=== PATIENT | female | born 1970 | race Caucasian/White ===

== ENCOUNTER 2023-10-17 17:30 | Inpatient (IN) | payer BC, OTHER ==
[2023-10-17 18:18] LABS: #Monocytes 0.3 thou/uL (0.11-0.59); #Neutrophils 8.6 thou/uL (1.40-6.50); %Basophils 0.2 % (0.0-1.0); %Lymphocytes 19.1 % (21.0-51.0); %Monocytes 3.1 % (0.0-10.0); %Neutrophils 77.2 % (42.0-75.0); Hematocrit 42.6 % (36.0-47.0); Hemoglobin 14.2 g/dL (12.0-16.0); Mean Corpuscular HGB CONC 33.3 g/dL (32.0-36.0); Mean Corpuscular Hemoglobin 30.9 pg (27.0-31.0); Mean Corpuscular Volume 92.6 fl (78.0-98.0); Mean Platelet Volume 9.2 fL (7.4-10.4); Platelet Count 277 10x3/uL (130-400); RBC Distribution Width 12.3 % (11.5-14.5); White Blood Cell (WBC) Count 11.1 10x3/uL (4.8-10.8)
[2023-10-17 18:42] LABS: ALT (SGPT) 14 U/L (8-55); AST (SGOT) 13 U/L (5-34); Albumin 4.4 g/dL (3.5-5.0); Alkaline Phosphatase 65 U/L (40-110); Anion Gap 10 mmol/L (10-20); BUN (Urea Nitrogen) 14 mg/dL (9.8-20.1); Bilirubin, Total 0.2 mg/dL (0.2-1.2); Calc. Creatinine Clearance 0 mL/min (70-130); Calcium 9.6 mg/dL (7.8-10.44); Carbon Dioxide 33 mmol/L (22-29); Chloride 103 mmol/L (98-107); Estimated GFR 96; Globulin 3.6 g/dL (2.4-3.5); Glucose 118 mg/dL (70-105); Potassium 4.2 mmol/L (3.5-5.1); Sodium 142 mmol/L (136-145)
[2023-10-17 18:54] LABS: Troponin I Less than 0.010 ng/mL (< 0.028)
[2023-10-17] MEDS ORDERED: Senokot S 8.6-50 MG TAB PO PRN (19:15)
[2023-10-17] MEDS ORDERED: Calcium Carbonate 500 MG ChewTAB PO PRN (19:15)
[2023-10-17] MEDS ORDERED: Ondansetron ODT 4 MG TAB PO PRN (19:15)
[2023-10-17] MEDS ORDERED: predniSONE 20 MG TAB ONE (19:39)
[2023-10-17] MEDS ORDERED: Ipratropium/Albuterol 3 ML NEB ONE (19:39)
[2023-10-17] MEDS ORDERED: Magnesium 2 GM/50 ML BAG (IN WATER) ONE (19:39)
[2023-10-17] MEDS ORDERED: hydrALAZINE 25 MG TAB ONE (19:39)
[2023-10-17] MEDS ORDERED: Sodium Chloride 0.9% 100 ML ONE (19:40)
[2023-10-17] MEDS ORDERED: cefTRIAXone (ROCEPHIN) 1 GM VIAL ONE (19:40)
[2023-10-17] MEDS ORDERED: Azithromycin 250 MG TAB ONE (19:44)
[2023-10-17 20:15] LABS: Actual Bicarbonate (HCO3v) 26.6 mEq/L (22-28); Analyzer IN Cardio ER; Base Excess 1.2 mEq/L (-2.0 to +3.0); Calcium, Ionized (venous) 1.16 mmol/L (1.16-1.32); Chloride (VBG) 103 mmol/L (98-106); Hematocrit-VBG 42 % (36.0-47.0); Hemoglobin (Hb) 14.4 g/dL (11.7-16.0); Potassium (VBG) 4.23 mmol/L (3.70-5.30); Sodium 141 mmol/L (133-146); pH (venous) 7.392 (7.32-7.43)
[2023-10-17 20:50] LABS: Troponin I Less than 0.010 ng/mL (< 0.028)
[2023-10-17] MEDS: methylPREDNISolone Sod Succ 40 MG VIAL IVP SCH (22:16)
[2023-10-17] MEDS: Doxycycline 100 MG CAP PO SCH (22:16)
[2023-10-17] MEDS: Amlodipine 5 MG TAB PO SCH (22:16)
[2023-10-17] MEDS: Famotidine 20 MG TAB PO SCH (22:16)
[2023-10-17] MEDS: Guaifenesin DM 100-10/5 ML UDCUP PO PRN (22:24)
[2023-10-17 22:30] VITALS: BMI 29.0
[2023-10-17] MEDS: Ipratropium/Albuterol 3 ML NEB NEB SCH (22:33)
[2023-10-17] MEDS ORDERED: Ketorolac Tromethamine 30 MG (1 mL) VIAL IVP SCH (23:30)
[2023-10-18] MEDS: hydrALAZINE 25 MG TAB PO PRN ×2 (00:19→12:01)
[2023-10-18] MEDS ORDERED: Labetalol HCl 100 MG/20 ML VIAL SLOW IVP SCH (02:00)
[2023-10-18] MEDS ORDERED: Labetalol HCl 100 MG/20 ML VIAL ONE (02:17)
[2023-10-18 03:32] LABS: Troponin I Less than 0.010 ng/mL (< 0.028)
[2023-10-18 05:47] LABS: #Monocytes 0.2 thou/uL (0.11-0.59); #Neutrophils 9.3 thou/uL (1.40-6.50); %Basophils 0.1 % (0.0-1.0); %Lymphocytes 18.7 % (21.0-51.0); %Monocytes 1.3 % (0.0-10.0); %Neutrophils 79.2 % (42.0-75.0); Hematocrit 40.2 % (36.0-47.0); Hemoglobin 13.2 g/dL (12.0-16.0); Mean Corpuscular HGB CONC 32.8 g/dL (32.0-36.0); Mean Corpuscular Volume 94.4 fl (78.0-98.0); Mean Platelet Volume 9.1 fL (7.4-10.4); Platelet Count 267 10x3/uL (130-400); RBC Distribution Width 12.5 % (11.5-14.5); Red Blood Cell (RBC) Count 4.26 mill/uL (4.20-5.40); White Blood Cell (WBC) Count 11.8 10x3/uL (4.8-10.8)
[2023-10-18 06:08] LABS: Anion Gap 12 mmol/L (10-20); BUN (Urea Nitrogen) 13 mg/dL (9.8-20.1); Calc. Creatinine Clearance 105 mL/min (70-130); Calcium 9.2 mg/dL (7.8-10.44); Carbon Dioxide 28 mmol/L (22-29); Chloride 104 mmol/L (98-107); Estimated GFR 101; Glucose 159 mg/dL (70-105); Potassium 4.3 mmol/L (3.5-5.1); Sodium 140 mmol/L (136-145)
[2023-10-18] MEDS: Ipratropium/Albuterol 3 ML NEB NEB SCH ×4 (07:38→22:05)
[2023-10-18] MEDS: Mometasone 200 MCG/Formoterol 5 MCG 120 PUFF INHALER INH SCH ×2 (07:38→18:31)
[2023-10-18] MEDS ORDERED: cefTRIAXone\\ROCEPHIN 1 GM in Sodium Chloride 0.9% 100 ML IVPB SCH (09:00)
[2023-10-18] MEDS ORDERED: Ipratropium/Albuterol 3 ML NEB EZPAP PRN ×2 (09:36→17:22)
[2023-10-18] MEDS: Doxycycline 100 MG CAP PO SCH (09:39)
[2023-10-18] MEDS: Famotidine 20 MG TAB PO SCH ×2 (09:39→20:32)
[2023-10-18] MEDS: Enoxaparin 40 MG (0.4 mL) SYRINGE SC SCH (09:39)
[2023-10-18] MEDS: methylPREDNISolone Sod Succ 40 MG VIAL IVP SCH ×4 (09:49→22:08)
[2023-10-18] MEDS ORDERED: Triamterene/Hydrochlorothiazide 37.5 mg/25 mg Tablet PO SCH (10:00)
[2023-10-18] MEDS: Lorazepam 1 MG TAB PO PRN ×2 (10:45→14:57)
[2023-10-18] MEDS: Guaifenesin DM 100-10/5 ML UDCUP PO PRN (10:53)
[2023-10-18] MEDS ORDERED: hydrALAZINE 20 MG/ML VIAL SLOW IVP PRN (12:43)
[2023-10-18] MEDS ORDERED: Benzonatate 100 MG CAP PO PRN (12:43)
[2023-10-18] MEDS ORDERED: Sodium Chloride 0.65% Nasal 44 ML BOT EA NARE PRN (12:43)
[2023-10-18] MEDS ORDERED: Artificial Tear Sol 15 ML BOT EA EYE PRN (12:43)
[2023-10-18] MEDS ORDERED: Moisturizing Cream (Eucerin) 113 GM JAR TOP PRN (12:43)
[2023-10-18] MEDS ORDERED: Loratadine 10 MG TAB PO PRN (12:43)
[2023-10-18] MEDS ORDERED: Lisinopril 20 MG TAB PO SCH (13:00)
[2023-10-18] MEDS ORDERED: Lurasidone 20 MG TABLET PO SCH (13:15)
[2023-10-18 13:38] LABS: Actual Bicarbonate (HCO3a) 30.6 mEq/L (22-28); CO2 Tension 48.5 mmHg (35.0-45.0); O2 Tension (PaO2), arterial 50.8 mmHg (80.0-100.0); pH, Arterial 7.418 (7.35-7.45)
[2023-10-18 13:39] LABS: Analyzer IN Cardio OR; Base Excess (BEa) 5.1 mEq/L (-2.0 to +3.0); Calcium, Ionized (arterial) 1.19 mmol/L (1.12-1.30); Carboxyhemoglobin (COHb) 0.7 gm% (0.0-3.0); Hematocrit-ABG 42 % (36.0-47.0); Hemoglobin (Hb) 14.3 g/dL (12.0-16.0); Potassium - ABG Lab 4.21 mmol/L (3.70-5.30); Puncture Site LRA
[2023-10-18] MEDS ORDERED: Lorazepam 2 MG/ML VIAL SLOW IVP PRN (17:20)
[2023-10-18] MEDS ORDERED: Lorazepam 2 MG/ML VIAL SLOW IVP SCH (17:30)
[2023-10-18] MEDS ORDERED: guaiFENesin ER 600 MG TAB PO SCH (17:36)
[2023-10-18] MEDS: guaiFENesin ER 600 MG TAB PO SCH (17:47)
[2023-10-18] MEDS: Acetaminophen 325 MG TAB PO PRN (17:48)
[2023-10-18] MEDS: Azithromycin 500 MG in Sodium Chloride 0.9% 250 ML 250 ML IVPB SCH (20:31)
[2023-10-18] MEDS: Amlodipine 5 MG TAB PO SCH (20:32)
[2023-10-18] MEDS: QUEtiapine 100 MG TAB PO SCH (20:32)
[2023-10-18] MEDS ORDERED: Albuterol 2.5 MG (3 mL) NEB NEB PRN (20:49)
[2023-10-18] MEDS ORDERED: Dexmedetomidine 400 MCG, Admixture Fee 1 EACH in Sodium Chloride 0.9% 96 ML IVPB SCH (21:00)
[2023-10-18] MEDS ORDERED: Dexmedetomidine In 0.9 % NaCl 100 ML IVPB SCH (21:00)
[2023-10-19] MEDS: Ipratropium/Albuterol 3 ML NEB NEB SCH ×6 (02:21→21:30)
[2023-10-19] MEDS: methylPREDNISolone Sod Succ 40 MG VIAL IVP SCH ×4 (04:52→21:43)
[2023-10-19] MEDS: guaiFENesin ER 600 MG TAB PO SCH ×2 (05:55→17:45)
[2023-10-19] MEDS: Mometasone 200 MCG/Formoterol 5 MCG 120 PUFF INHALER INH SCH ×2 (07:34→19:33)
[2023-10-19 07:41] LABS: #Monocytes 0.2 thou/uL (0.11-0.59); %Basophils 0.1 % (0.0-1.0); %Lymphocytes 18.7 % (21.0-51.0); %Monocytes 1.4 % (0.0-10.0); %Neutrophils 79.2 % (42.0-75.0); Hematocrit 46.8 % (36.0-47.0); Hemoglobin 14.9 g/dL (12.0-16.0); Mean Corpuscular HGB CONC 31.8 g/dL (32.0-36.0); Mean Corpuscular Hemoglobin 31.1 pg (27.0-31.0); Mean Corpuscular Volume 97.7 fl (78.0-98.0); Platelet Count 271 10x3/uL (130-400); RBC Distribution Width 12.4 % (11.5-14.5); Red Blood Cell (RBC) Count 4.79 mill/uL (4.20-5.40); White Blood Cell (WBC) Count 13.9 10x3/uL (4.8-10.8)
[2023-10-19 08:11] LABS: Anion Gap 20 mmol/L (10-20); BUN (Urea Nitrogen) 21 mg/dL (9.8-20.1); Calc. Creatinine Clearance 92 mL/min (70-130); Calcium 9.6 mg/dL (7.8-10.44); Carbon Dioxide 21 mmol/L (22-29); Chloride 101 mmol/L (98-107); Estimated GFR 87; Glucose 112 mg/dL (70-105); Potassium 4.7 mmol/L (3.5-5.1); Sodium 137 mmol/L (136-145)
[2023-10-19] MEDS: Enoxaparin 40 MG (0.4 mL) SYRINGE SC SCH (08:18)
[2023-10-19] MEDS: Lurasidone 20 MG TABLET PO SCH (08:19)
[2023-10-19] MEDS: Famotidine 20 MG TAB PO SCH ×2 (08:19→19:37)
[2023-10-19] MEDS: Lisinopril 20 MG TAB PO SCH (08:19)
[2023-10-19] MEDS: Triamterene/Hydrochlorothiazide 37.5 mg/25 mg Tablet PO SCH (08:20)
[2023-10-19] MEDS: Nicotine 14 MG PATCH TD PRN (08:20)
[2023-10-19] MEDS: Morphine 2 MG/ML VIAL SLOW IVP PRN ×2 (08:32→19:33)
[2023-10-19] MEDS: guaiFENesin/Codeine 200 mg/20 mg 10 ml Cup PO SCH ×3 (10:02→23:32)
[2023-10-19] MEDS: Benzonatate 100 MG CAP PO SCH ×3 (10:02→19:37)
[2023-10-19 18:33] VITALS: BP 180/110
[2023-10-19] MEDS: Azithromycin 500 MG in Sodium Chloride 0.9% 250 ML 250 ML IVPB SCH (19:36)
[2023-10-19] MEDS: Acetaminophen 325 MG TAB PO PRN (19:36)
[2023-10-19] MEDS: Amlodipine 5 MG TAB PO SCH (19:37)
[2023-10-19] MEDS: QUEtiapine 100 MG TAB PO SCH (19:37)
[2023-10-19] MEDS ORDERED: ALPRAZolam 0.25 MG TAB PO SCH (22:00)
[2023-10-20] MEDS: Ipratropium/Albuterol 3 ML NEB NEB SCH ×6 (02:28→22:41)
[2023-10-20] MEDS: methylPREDNISolone Sod Succ 40 MG VIAL IVP SCH ×5 (03:28→22:11)
[2023-10-20] MEDS: guaiFENesin ER 600 MG TAB PO SCH ×2 (05:31→17:26)
[2023-10-20] MEDS: guaiFENesin/Codeine 200 mg/20 mg 10 ml Cup PO SCH ×4 (05:31→23:38)
[2023-10-20] MEDS: Mometasone 200 MCG/Formoterol 5 MCG 120 PUFF INHALER INH SCH ×2 (07:04→19:09)
[2023-10-20] MEDS: Enoxaparin 40 MG (0.4 mL) SYRINGE SC SCH (09:42)
[2023-10-20] MEDS: Benzonatate 100 MG CAP PO SCH ×3 (09:42→20:37)
[2023-10-20] MEDS: Triamterene/Hydrochlorothiazide 37.5 mg/25 mg Tablet PO SCH (09:43)
[2023-10-20] MEDS: Famotidine 20 MG TAB PO SCH ×2 (09:43→20:38)
[2023-10-20] MEDS: Lurasidone 20 MG TABLET PO SCH (09:43)
[2023-10-20] MEDS: Lisinopril 20 MG TAB PO SCH (09:44)
[2023-10-20] MEDS: Morphine 2 MG/ML VIAL SLOW IVP PRN ×3 (12:30→22:11)
[2023-10-20] MEDS: QUEtiapine 100 MG TAB PO SCH (20:37)
[2023-10-20] MEDS: Azithromycin 500 MG in Sodium Chloride 0.9% 250 ML 250 ML IVPB SCH (20:37)
[2023-10-20] MEDS: Amlodipine 5 MG TAB PO SCH (20:38)
[2023-10-21] MEDS: methylPREDNISolone Sod Succ 40 MG VIAL IVP SCH ×3 (03:46→17:10)
[2023-10-21] MEDS: guaiFENesin ER 600 MG TAB PO SCH ×2 (05:09→17:10)
[2023-10-21] MEDS: guaiFENesin/Codeine 200 mg/20 mg 10 ml Cup PO SCH ×3 (05:10→17:10)
[2023-10-21 07:05] LABS: #Monocytes 0.4 thou/uL (0.11-0.59); #Neutrophils 12.1 thou/uL (1.40-6.50); %Basophils 0.3 % (0.0-1.0); %Lymphocytes 17.1 % (21.0-51.0); %Monocytes 2.5 % (0.0-10.0); %Neutrophils 78.5 % (42.0-75.0); Hematocrit 42.3 % (36.0-47.0); Hemoglobin 13.2 g/dL (12.0-16.0); Mean Corpuscular HGB CONC 31.2 g/dL (32.0-36.0); Mean Corpuscular Hemoglobin 30.6 pg (27.0-31.0); Mean Corpuscular Volume 97.9 fl (78.0-98.0); Mean Platelet Volume 8.8 fL (7.4-10.4); Platelet Count 316 10x3/uL (130-400); RBC Distribution Width 12.5 % (11.5-14.5); Red Blood Cell (RBC) Count 4.32 mill/uL (4.20-5.40); White Blood Cell (WBC) Count 15.4 10x3/uL (4.8-10.8)
[2023-10-21 07:43] LABS: Anion Gap 12 mmol/L (10-20); BUN (Urea Nitrogen) 28 mg/dL (9.8-20.1); Calc. Creatinine Clearance 111 mL/min (70-130); Carbon Dioxide 26 mmol/L (22-29); Chloride 102 mmol/L (98-107); Estimated GFR 100; Glucose 141 mg/dL (70-105); Potassium 4.3 mmol/L (3.5-5.1); Sodium 136 mmol/L (136-145)
[2023-10-21] MEDS: Ipratropium/Albuterol 3 ML NEB NEB SCH ×4 (08:24→14:17)
[2023-10-21] MEDS: Lisinopril 20 MG TAB PO SCH (08:35)
[2023-10-21] MEDS: Acetaminophen 325 MG TAB PO PRN (08:35)
[2023-10-21] MEDS: Enoxaparin 40 MG (0.4 mL) SYRINGE SC SCH (08:36)
[2023-10-21] MEDS: Famotidine 20 MG TAB PO SCH (08:36)
[2023-10-21] MEDS: Benzonatate 100 MG CAP PO SCH ×2 (08:37→14:48)
[2023-10-21] MEDS: Mometasone 200 MCG/Formoterol 5 MCG 120 PUFF INHALER INH SCH (08:42)
[2023-10-21] MEDS: Lurasidone 20 MG TABLET PO SCH (09:18)
[2023-10-21] MEDS: Nicotine 14 MG PATCH TD PRN (09:18)
[2023-10-21] MEDS: Triamterene/Hydrochlorothiazide 37.5 mg/25 mg Tablet PO SCH (09:18)
[2023-10-21] MEDS: Morphine 2 MG/ML VIAL SLOW IVP PRN (09:34)
[2023-10-21 11:42] VITALS: TEMP 97.9
[2023-10-22] MEDS ORDERED: predniSONE 20 MG TAB PO SCH (08:00)
== END 2023-10-21 18:32 | disposition home or self-care (01) | DRG 871 ==
LOC: ERS 17:30 → 2SW 19:42 → OBSVTOIN 10-18 09:48 → IMCU/EMU 10-18 17:01
PROVIDERS: ADMIT Student in an Organized Health Care Education/Training Program; ATTEND Family Medicine
PROC: 3E03329 Introduction of Other Anti-infective into Peripheral Vein, Percutaneous Approach (ICD-10-PCS; 2023-10-17)
PROC: 4A033R1 Measurement of Arterial Saturation, Peripheral, Percutaneous Approach (ICD-10-PCS; principal; 2023-10-18)
PROC: 5A09457 Assistance with Respiratory Ventilation, 24-96 Consecutive Hours, Continuous Positive Airway Pressure (ICD-10-PCS; 2023-10-18)
DX: A41.9 Sepsis, unspecified organism (principal); J96.21 Acute and chronic respiratory failure with hypoxia; J96.22 Acute and chronic respiratory failure with hypercapnia; J44.1 Chronic obstructive pulmonary disease with (acute) exacerbation; I10 Essential (primary) hypertension; I25.10 Atherosclerotic heart disease of native coronary artery without angina pectoris; F41.9 Anxiety disorder, unspecified; K21.9 Gastro-esophageal reflux disease without esophagitis; R65.20 Severe sepsis without septic shock; F17.210 Nicotine dependence, cigarettes, uncomplicated; Z88.8 Allergy status to other drugs, medicaments and biological substances; Z79.899 Other long term (current) drug therapy; Z79.51 Long term (current) use of inhaled steroids; Z90.710 Acquired absence of both cervix and uterus; Z98.890 Other specified postprocedural states; Z90.89 Acquired absence of other organs; Z98.51 Tubal ligation status; Z71.6 Tobacco abuse counseling
CPT/HCPCS: 36415; 36416; 36600; 71045; 80048; 80053; 82805; 83605; 83880; 84145; 84484; 85025; 87040; 93005; 94640; 94660; 94664; 96372; 96375; 96376; G0378; J0360; J0456; J0696; J1650; J1885; J2060; J2272; J2920; J3475; J3490; J7050; J7512; J7620

== ENCOUNTER 2023-11-14 20:45 | Inpatient (IN) | payer OTHER ==
[2023-11-14 21:30] LABS: #Eosinphils 0.1 thou/uL (0.0-0.7); #Monocytes 0.8 thou/uL (0.11-0.59); #Neutrophils 4.8 thou/uL (1.40-6.50); %Basophils 0.2 % (0.0-1.0); %Eosinophils 1.2 % (0.0-10.0); %Monocytes 9.4 % (0.0-10.0); %Neutrophils 57.8 % (42.0-75.0); Hematocrit 39.4 % (36.0-47.0); Hemoglobin 13.1 g/dL (12.0-16.0); Mean Corpuscular HGB CONC 33.2 g/dL (32.0-36.0); Mean Corpuscular Volume 93.1 fl (78.0-98.0); Mean Platelet Volume 8.8 fL (7.4-10.4); Platelet Count 240 10x3/uL (130-400); RBC Distribution Width 12.7 % (11.5-14.5); Red Blood Cell (RBC) Count 4.23 mill/uL (4.20-5.40); White Blood Cell (WBC) Count 8.3 10x3/uL (4.8-10.8)
[2023-11-14 21:54] LABS: ALT (SGPT) 13 U/L (8-55); AST (SGOT) 15 U/L (5-34); Albumin 4.3 g/dL (3.5-5.0); Alkaline Phosphatase 51 U/L (40-110); Anion Gap 10 mmol/L (10-20); BUN (Urea Nitrogen) 20 mg/dL (9.8-20.1); Bilirubin, Total 0.3 mg/dL (0.2-1.2); Calc. Creatinine Clearance 0 mL/min (70-130); Calcium 9.3 mg/dL (7.8-10.44); Carbon Dioxide 28 mmol/L (22-29); Chloride 105 mmol/L (98-107); Estimated GFR 53; Globulin 2.8 g/dL (2.4-3.5); Glucose 94 mg/dL (70-105); Potassium 4.1 mmol/L (3.5-5.1); Protein, Total 7.1 g/dL (6.0-8.3); Sodium 139 mmol/L (136-145)
[2023-11-14 21:56] LABS: Troponin I Less than 0.010 ng/mL (< 0.028)
[2023-11-14] MEDS ORDERED: methylPREDNISolone Sod Succ/PF 125 MG/2 ML VIAL ONE (22:11)
[2023-11-15] MEDS ORDERED: Ipratropium/Albuterol 3 ML NEB ONE ×4 (00:05→14:03)
[2023-11-15] MEDS ORDERED: Nitroglycerin 2% Ointment 1 INCH/1 GM Packet ONE (01:52)
[2023-11-15] MEDS ORDERED: Morphine 4 MG/ML VIAL ONE (01:52)
[2023-11-15] MEDS ORDERED: Ondansetron PF 4 MG/2 ML Vial ONE (01:53)
[2023-11-15] MEDS ORDERED: Aspirin Chewable 81 MG TAB ONE (01:53)
[2023-11-15] MEDS ORDERED: Ondansetron PF 4 MG/2 ML Vial IVP PRN (02:20)
[2023-11-15] MEDS ORDERED: Acetaminophen 325 MG TAB PO PRN (02:20)
[2023-11-15] MEDS ORDERED: Benzonatate 100 MG CAP PO PRN (02:22)
[2023-11-15] MEDS ORDERED: cefTRIAXone (ROCEPHIN) 2 GM VIAL ONE (02:52)
[2023-11-15] MEDS ORDERED: Sodium Chloride 0.9% 100 ML ONE (02:53)
[2023-11-15] MEDS: Sodium Chloride 0.9% 500 ML IV SCH (03:00)
[2023-11-15] MEDS: Doxycycline 100 MG in Sodium Chloride 0.9% 100 ML IVPB SCH (03:37)
[2023-11-15 03:53] LABS: #Monocytes 0.1 thou/uL (0.11-0.59); #Neutrophils 4.7 thou/uL (1.40-6.50); %Basophils 0.2 % (0.0-1.0); %Lymphocytes 15.3 % (21.0-51.0); %Monocytes 1.2 % (0.0-10.0); %Neutrophils 82.9 % (42.0-75.0); Hematocrit 38.3 % (36.0-47.0); Hemoglobin 12.7 g/dL (12.0-16.0); Mean Corpuscular HGB CONC 33.2 g/dL (32.0-36.0); Mean Corpuscular Hemoglobin 30.5 pg (27.0-31.0); Mean Corpuscular Volume 91.8 fl (78.0-98.0); Mean Platelet Volume 9.1 fL (7.4-10.4); Platelet Count 216 10x3/uL (130-400); RBC Distribution Width 12.6 % (11.5-14.5); Red Blood Cell (RBC) Count 4.17 mill/uL (4.20-5.40); White Blood Cell (WBC) Count 5.7 10x3/uL (4.8-10.8)
[2023-11-15] MEDS: Ipratropium/Albuterol 3 ML NEB ONE (03:55)
[2023-11-15 04:05] LABS: Hemoglobin A1c 5.9 % (4.0-6.0)
[2023-11-15] MEDS: Ipratropium/Albuterol 3 ML NEB NEB SCH (04:05)
[2023-11-15 04:19] LABS: Troponin I Less than 0.010 ng/mL (< 0.028)
[2023-11-15 04:20] LABS: Anion Gap 14 mmol/L (10-20); BUN (Urea Nitrogen) 26 mg/dL (9.8-20.1); Calc. Creatinine Clearance 0 mL/min (70-130); Calcium 9.2 mg/dL (7.8-10.44); Carbon Dioxide 27 mmol/L (22-29); Cardiac Risk 1.9 (Less than 4.5); Chloride 103 mmol/L (98-107); Cholesterol 149 mg/dl (< 200 Desired); Estimated GFR 67; Glucose 167 mg/dL (70-105); HDL Cholesterol 77 mg/dL (>60 Neg Risk); LDL Cholesterol, Calculated 54 mg/dL; Potassium 4.6 mmol/L (3.5-5.1); Sodium 139 mmol/L (136-145); Triglycerides 88 mg/dL (Less than 150)
[2023-11-15] MEDS ORDERED: guaiFENesin ER 600 MG TAB ONE (04:47)
[2023-11-15] MEDS ORDERED: methylPREDNISolone Sod Succ 40 MG VIAL ONE ×2 (04:47→12:42)
[2023-11-15] MEDS ORDERED: Morphine 2 MG/ML VIAL ONE (04:47)
[2023-11-15] MEDS: guaiFENesin/DM ER PO SCH (04:50)
[2023-11-15] MEDS: methylPREDNISolone Sod Succ 40 MG VIAL IVP SCH (05:00)
[2023-11-15 05:39] VITALS: BMI 27.3
[2023-11-15 05:48] LABS: SARS-CoV-2 NAA Rapid Test Not Detected (NotDetected)
[2023-11-15 06:31] VITALS: BP 118/91; TEMP 97.9
[2023-11-15 06:58] LABS: Troponin I Less than 0.010 ng/mL (< 0.028)
[2023-11-15] MEDS: Mometasone 200 MCG/Formoterol 5 MCG 120 PUFF INHALER INH SCH (07:53)
[2023-11-15] MEDS ORDERED: Enoxaparin 40 MG (0.4 mL) SYRINGE ONE (08:28)
[2023-11-15] MEDS: Enoxaparin 40 MG (0.4 mL) SYRINGE SC SCH (08:37)
[2023-11-16] MEDS ORDERED: cefTRIAXone\\ROCEPHIN 1 GM in Sodium Chloride 0.9% 100 ML IVPB SCH (03:00)
== END 2023-11-15 13:21 | disposition home or self-care (01) | DRG 191 ==
LOC: ERS 20:45 → ERHOLD 11-15 02:10
PROVIDERS: ADMIT Internal Medicine; ATTEND Internal Medicine
DX: J44.1 Chronic obstructive pulmonary disease with (acute) exacerbation (principal); J96.11 Chronic respiratory failure with hypoxia; N17.9 Acute kidney failure, unspecified; I25.10 Atherosclerotic heart disease of native coronary artery without angina pectoris; I10 Essential (primary) hypertension; K21.9 Gastro-esophageal reflux disease without esophagitis; F17.210 Nicotine dependence, cigarettes, uncomplicated; Z88.8 Allergy status to other drugs, medicaments and biological substances; Z79.899 Other long term (current) drug therapy; Z90.49 Acquired absence of other specified parts of digestive tract; Z90.710 Acquired absence of both cervix and uterus; Z98.51 Tubal ligation status; Z98.890 Other specified postprocedural states; Z82.49 Family history of ischemic heart disease and other diseases of the circulatory system; Z71.6 Tobacco abuse counseling; Z11.52 Encounter for screening for COVID-19
CPT/HCPCS: 36415; 71045; 80048; 80053; 80061; 83036; 83735; 83880; 84484; 85025; 93005; 93306; 94640; 94664; 94760; 96365; 96375; J0696; J1650; J2270; J2272; J2405; J2920; J2930; J3490; J7030; J7620

== ENCOUNTER 2024-08-30 13:23 | Emergency (ER) | payer OTHER ==
[2024-08-30] MEDS ORDERED: Acetaminophen 500 MG TAB ONE (13:48)
[2024-08-30] MEDS ORDERED: Ketorolac Tromethamine 30 MG (1 mL) VIAL ONE (13:48)
== END 2024-08-30 14:06 | disposition home or self-care (01) ==
LOC: ERS 13:23
DX: M54.50 Low back pain, unspecified (principal); I10 Essential (primary) hypertension; F17.210 Nicotine dependence, cigarettes, uncomplicated; V49.60XA Unspecified car occupant injured in collision with unspecified motor vehicles in traffic accident, initial encounter; Y93.89 Activity, other specified
CPT/HCPCS: 72100; 96372; 99284; J1885

== ENCOUNTER 2024-09-10 06:22 | Inpatient (IN) | payer OTHER ==
[2024-09-10] MEDS ORDERED: Ipratropium/Albuterol 3 ML NEB ONE ×2 (06:29→07:09)
[2024-09-10] MEDS ORDERED: methylPREDNISolone Sod Succ/PF 125 MG/2 ML VIAL ONE (07:09)
[2024-09-10 07:30] LABS: Base Excess -0.4 mEq/L (-2.0 to +3.0); Hematocrit-VBG 41 % (36.0-47.0); Hemoglobin (Hb) 13.9 g/dL (11.7-16.0); pH (venous) 7.336 (7.32-7.43)
[2024-09-10] MEDS ORDERED: Magnesium 2 GM/50 ML BAG (IN WATER) ONE (07:30)
[2024-09-10 07:31] LABS: Calcium, Ionized (venous) 1.15 mmol/L (1.16-1.32); Chloride (VBG) 106 mmol/L (98-106); Potassium (VBG) 3.82 mmol/L (3.70-5.30); Sodium 142 mmol/L (133-146)
[2024-09-10 07:34] LABS: #Basophils Less than 0.03 10x3/uL (0.0-0.2); %Basophils 0.3 % (0.0-1.0); %Eosinophils 1.9 % (0.0-10.0); %Lymphocytes 34.6 % (21.0-51.0); %Monocytes 12.6 % (0.0-10.0); %Neutrophils 50.3 % (42.0-75.0); Hematocrit 38.6 % (36.0-47.0); Hemoglobin 12.8 g/dL (12.0-16.0); Mean Corpuscular HGB CONC 33.2 g/dL (32.0-36.0); Mean Corpuscular Hemoglobin 30.2 pg (27.0-31.0); Mean Platelet Volume 8.7 fL (7.4-10.4); Platelet Count 230 10x3/uL (130-400); RBC Distribution Width 12.2 % (11.5-14.5); Red Blood Cell (RBC) Count 4.24 mill/uL (4.20-5.40)
[2024-09-10 07:44] LABS: Base Excess -1.5 mEq/L (-2.0 to +3.0); Calcium, Ionized (venous) 1.16 mmol/L (1.16-1.32); Chloride (VBG) 106 mmol/L (98-106); Hematocrit-VBG 41 % (36.0-47.0); Hemoglobin (Hb) 13.8 g/dL (11.7-16.0); Potassium (VBG) 3.74 mmol/L (3.70-5.30); Sodium 142 mmol/L (133-146); pH (venous) 7.325 (7.32-7.43)
[2024-09-10 07:53] LABS: ALT (SGPT) 19 U/L (8-55); AST (SGOT) 20 U/L (5-34); Albumin 3.7 g/dL (3.5-5.0); Alkaline Phosphatase 56 U/L (40-110); Anion Gap 12 mmol/L (10-20); BUN (Urea Nitrogen) 23 mg/dL (9.8-20.1); Bilirubin, Total 0.2 mg/dL (0.2-1.2); Calc. Creatinine Clearance 0 mL/min (70-130); Calcium 9.2 mg/dL (7.8-10.44); Carbon Dioxide 24 mmol/L (22-29); Chloride 108 mmol/L (98-107); Estimated GFR 76; Globulin 3.6 g/dL (2.4-3.5); Glucose 86 mg/dL (70-105); Potassium 3.8 mmol/L (3.5-5.1); Protein, Total 7.3 g/dL (6.0-8.3); Sodium 140 mmol/L (136-145)
[2024-09-10 08:04] LABS: Troponin I Less than 0.010 ng/mL (< 0.028)
[2024-09-10] MEDS ORDERED: Ipratropium/Albuterol 3 ML NEB NEB PRN (09:20)
[2024-09-10] MEDS ORDERED: Ondansetron PF 4 MG/2 ML Vial IVP PRN (09:20)
[2024-09-10] MEDS ORDERED: Acetaminophen 325 MG TAB PO PRN (09:20)
[2024-09-10] MEDS ORDERED: Albuterol 2.5 MG (0.5 mL) NEB ONE (09:47)
[2024-09-10] MEDS ORDERED: Ketorolac Tromethamine 30 MG (1 mL) VIAL ONE (10:01)
[2024-09-10 10:15] VITALS: BMI 35.9
[2024-09-10] MEDS: cefTRIAXone\\ROCEPHIN 1 GM in Sodium Chloride 0.9% 100 ML IVPB SCH (13:08)
[2024-09-10] MEDS: Amlodipine 5 MG TAB PO SCH ×2 (13:08→21:25)
[2024-09-10] MEDS: Ipratropium/Albuterol 3 ML NEB NEB SCH (13:27)
[2024-09-10] MEDS: Ondansetron ODT 4 MG TAB PO PRN (14:19)
[2024-09-10] MEDS: Azithromycin 500 MG in Sodium Chloride 0.9% 250 ML 250 ML IVPB SCH (14:28)
[2024-09-10] MEDS: Potassium Chloride 10 MEQ TAB PO SCH (17:29)
[2024-09-10] MEDS: HYDROcodone/Acetaminophen 5/325 mg Tablet PO PRN (17:37)
[2024-09-10] MEDS: Lorazepam 0.5 MG TAB PO PRN (19:22)
[2024-09-10] MEDS: Mometasone 200 MCG/Formoterol 5 MCG 120 PUFF INHALER INH SCH (19:32)
[2024-09-10] MEDS: QUEtiapine 100 MG TAB PO SCH (21:24)
[2024-09-10] MEDS: Atorvastatin Calcium 40 MG TAB PO SCH (21:24)
[2024-09-10] MEDS: Varenicline Tartrate 0.5 MG TAB PO SCH (21:25)
[2024-09-11 05:32] LABS: #Basophils Less than 0.03 10x3/uL (0.0-0.2); #Eosinophils Less than 0.03 10x3/uL (0.0-0.7); %Basophils 0.1 % (0.0-1.0); %Eosinophils 0.1 % (0.0-10.0); %Monocytes 5.7 % (0.0-10.0); %Neutrophils 77.6 % (42.0-75.0); Hematocrit 34.7 % (36.0-47.0); Hemoglobin 11.6 g/dL (12.0-16.0); Mean Corpuscular HGB CONC 33.4 g/dL (32.0-36.0); Mean Corpuscular Hemoglobin 31.1 pg (27.0-31.0); Mean Platelet Volume 9.1 fL (7.4-10.4); Platelet Count 226 10x3/uL (130-400); RBC Distribution Width 12.2 % (11.5-14.5); Red Blood Cell (RBC) Count 3.73 mill/uL (4.20-5.40)
[2024-09-11 06:58] LABS: Anion Gap 13 mmol/L (10-20); BUN (Urea Nitrogen) 24 mg/dL (9.8-20.1); Calc. Creatinine Clearance 122 mL/min (70-130); Calcium 8.4 mg/dL (7.8-10.44); Carbon Dioxide 21 mmol/L (22-29); Chloride 109 mmol/L (98-107); Estimated GFR 94; Glucose 118 mg/dL (70-105); Potassium 4.3 mmol/L (3.5-5.1); Sodium 139 mmol/L (136-145)
[2024-09-11] MEDS: methylPREDNISolone Sod Succ 40 MG VIAL IVP SCH (07:45)
[2024-09-11] MEDS: Enoxaparin 40 MG (0.4 mL) SYRINGE SC SCH (07:45)
[2024-09-11] MEDS: Furosemide 20 MG TAB PO SCH (07:46)
[2024-09-11] MEDS: Pantoprazole DR 40 MG TAB PO SCH (07:47)
[2024-09-11] MEDS: Aspirin 81 mg Enteric Coated Tablet PO SCH (07:47)
[2024-09-11] MEDS: Losartan 25 MG TAB PO SCH (07:47)
[2024-09-11] MEDS: FLU (Fluarix Triv) TS24-25(6MOS UP)/PF 45 MCG/0.5 ML Syringe IM ONE (13:01)
[2024-09-11 13:12] VITALS: BP 137/83; TEMP 98.1
== END 2024-09-11 14:00 | disposition home or self-care (01) | DRG 189 ==
LOC: ERS 06:22 → ERHOLD 09:03 → 2NO 12:33
PROVIDERS: ADMIT Internal Medicine; ATTEND Family Medicine
DX: J96.21 Acute and chronic respiratory failure with hypoxia (principal); J44.1 Chronic obstructive pulmonary disease with (acute) exacerbation; I25.10 Atherosclerotic heart disease of native coronary artery without angina pectoris; I10 Essential (primary) hypertension; K21.9 Gastro-esophageal reflux disease without esophagitis; F32.A Depression, unspecified; F17.210 Nicotine dependence, cigarettes, uncomplicated; F41.9 Anxiety disorder, unspecified; Z71.6 Tobacco abuse counseling; Z91.018 Allergy to other foods; Z88.8 Allergy status to other drugs, medicaments and biological substances; Z90.49 Acquired absence of other specified parts of digestive tract; I25.2 Old myocardial infarction; Z99.81 Dependence on supplemental oxygen; Z79.51 Long term (current) use of inhaled steroids; Z79.899 Other long term (current) drug therapy; Z90.710 Acquired absence of both cervix and uterus; Z98.51 Tubal ligation status
CPT/HCPCS: 36415; 71045; 80048; 80053; 82805; 83880; 84484; 85025; 87428; 93005; 94640; 94644; 94760; 96365; 96366; 96375; J0456; J0696; J1650; J1885; J2919; J3475; J7050; J7611; J7620; Q0162

== ENCOUNTER 2025-06-02 10:22 | Observation (INO) | payer OTHER ==
[2025-06-02 12:34] LABS: ALT (SGPT) 14 U/L (Less than 34); AST (SGOT) 30 U/L (11-34); Albumin 4.0 g/dL (3.1-4.5); Alkaline Phosphatase 61 U/L (40-110); Anion Gap 11 mmol/L (10-20); BUN (Urea Nitrogen) 14 mg/dL (9.8-20.1); Bilirubin, Total 0.2 mg/dL (0.3-1.2); Calc. Creatinine Clearance 0 mL/min (70-130); Calcium 9.6 mg/dL (7.8-10.44); Carbon Dioxide 23 mmol/L (22-29); Chloride 106 mmol/L (98-107); Globulin 3.5 g/dL (2.4-3.5); Glucose 84 mg/dL (70-105); Potassium 5.2 mmol/L (3.5-5.1); Sodium 135 mmol/L (136-145)
[2025-06-02 13:24] LABS: #Basophils 0.03 10x3/uL (0.0-0.2); #Eosinophils 0.09 10x3/uL (0.0-0.7); #Monocytes 0.74 10x3/uL (0.11-0.59); #Neutrophils 4.91 10x3/uL (1.40-6.50); %Basophils 0.4 % (0.0-1.0); %Eosinophils 1.2 % (0.0-10.0); %Lymphocytes 20.2 % (21.0-51.0); %Monocytes 10.2 % (0.0-10.0); %Neutrophils 67.6 % (42.0-75.0); Hematocrit 42.0 % (36.0-47.0); Hemoglobin 13.7 g/dL (12.0-16.0); Mean Corpuscular Hemoglobin 30.2 pg (27.0-31.0); Mean Corpuscular Volume 92.7 fL (78.0-98.0); Platelet Count 239 10x3/uL (130-400); Red Blood Cell (RBC) Count 4.53 mill/uL (4.20-5.40); White Blood Cell (WBC) Count 7.27 10x3/uL (4.8-10.8)
[2025-06-02] MEDS ORDERED: Ketorolac Tromethamine 30 MG (1 mL) VIAL ONE (13:38)
[2025-06-02] MEDS ORDERED: hydrALAZINE 20 MG/ML VIAL ONE ×2 (13:38→16:50)
[2025-06-02] MEDS ORDERED: predniSONE 20 MG TAB ONE (16:13)
[2025-06-02] MEDS ORDERED: Nitroglycerin 2% Ointment 1 INCH/1 GM Packet ONE (16:13)
[2025-06-02] MEDS ORDERED: Prochlorperazine 10 MG/2 ML VIAL ONE (16:20)
[2025-06-02] MEDS ORDERED: Magnesium 2 GM/50 ML BAG (IN WATER) ONE (16:21)
[2025-06-02] MEDS ORDERED: Guaifenesin DM 100-10/5 ML UDCUP PO PRN (16:59)
[2025-06-02] MEDS ORDERED: Acetaminophen 325 MG TAB PO PRN (16:59)
[2025-06-02] MEDS ORDERED: Melatonin 3 MG TAB PO PRN (16:59)
[2025-06-02] MEDS ORDERED: Ondansetron PF 4 MG/2 ML Vial IVP PRN (16:59)
[2025-06-02] MEDS ORDERED: Electrolyte Replacement Protocol 1 EACH FS PRN (17:00)
[2025-06-02 18:21] VITALS: BMI 31.4
[2025-06-02] MEDS: Azithromycin 500 MG in Sodium Chloride 0.9% 250 ML 250 ML IVPB SCH (18:48)
[2025-06-02] MEDS: cefTRIAXone\\ROCEPHIN 1 GM in Sodium Chloride 0.9% 100 ML IVPB SCH (18:48)
[2025-06-02] MEDS: Albuterol 2.5 MG (3 mL) NEB NEB SCH (19:20)
[2025-06-02] MEDS: Dextrose 50% Abboject 50 ML SYRINGE SLOW IVP SCH (19:28)
[2025-06-02] MEDS: Sodium Polystyrene Sulfonate 15 GM (60 mL) BOT PO SCH (19:28)
[2025-06-02] MEDS: Furosemide 40 MG TAB PO SCH (19:29)
[2025-06-03] MEDS: cloNIDine 0.1 MG TAB PO PRN (01:41)
[2025-06-03] MEDS: Fioricet 325/50/40 mg Tablet PO PRN (01:41)
[2025-06-03 04:25] VITALS: TEMP 98.2
[2025-06-03 04:46] LABS: Hematocrit 40.4 % (36.0-47.0); Hemoglobin 13.3 g/dL (12.0-16.0); Mean Corpuscular Hemoglobin 30.0 pg (27.0-31.0); Mean Corpuscular Volume 91.2 fL (78.0-98.0); Platelet Count 236 10x3/uL (130-400); Red Blood Cell (RBC) Count 4.43 mill/uL (4.20-5.40); White Blood Cell (WBC) Count 4.88 10x3/uL (4.8-10.8)
[2025-06-03 04:54] LABS: Anion Gap 12 mmol/L (10-20); BUN (Urea Nitrogen) 20 mg/dL (9.8-20.1); Calc. Creatinine Clearance 97 mL/min (70-130); Calcium 8.9 mg/dL (7.8-10.44); Carbon Dioxide 27 mmol/L (22-29); Chloride 100 mmol/L (98-107); Glucose 194 mg/dL (70-105); Potassium 3.5 mmol/L (3.5-5.1); Sodium 135 mmol/L (136-145)
[2025-06-03 05:25] LABS: Platelet Adequacy Comment Platelets Normal; RBC Morphology Within Normal Limits; Smudge Cells 6.0 %
[2025-06-03] MEDS: Enoxaparin 40 MG (0.4 mL) SYRINGE SC SCH (09:24)
[2025-06-03] MEDS: Bupropion 150 MG SR.TAB PO SCH (09:27)
[2025-06-03] MEDS: Furosemide 40 MG TAB PO SCH (09:28)
[2025-06-03 09:29] VITALS: BP 170/94
[2025-06-03] MEDS ORDERED: Aspirin Chewable 81 MG TAB PO SCH (21:00)
[2025-06-03] MEDS ORDERED: Pantoprazole 40 MG DR.TAB PO SCH (21:00)
[2025-06-03] MEDS ORDERED: Losartan 25 MG TAB PO SCH (21:00)
[2025-06-03] MEDS ORDERED: Sertraline 100 MG TAB PO SCH (21:00)
== END 2025-06-03 11:18 | disposition home or self-care (01) ==
LOC: ERS 10:22 → OBS 16:30
PROVIDERS: ADMIT Internal Medicine; ATTEND Internal Medicine
DX: J44.1 Chronic obstructive pulmonary disease with (acute) exacerbation (principal); I16.9 Hypertensive crisis, unspecified; F41.9 Anxiety disorder, unspecified; E78.5 Hyperlipidemia, unspecified; I10 Essential (primary) hypertension; I25.10 Atherosclerotic heart disease of native coronary artery without angina pectoris; E87.5 Hyperkalemia; Z88.6 Allergy status to analgesic agent; Z91.018 Allergy to other foods; Z79.82 Long term (current) use of aspirin; Z79.899 Other long term (current) drug therapy
CPT/HCPCS: 36415; 70450; 71045; 80048; 80053; 84484; 85025; 85379; 93005; 94640; 94760; 96365; 96368; 96372; 96374; 96375; 96376; G0378; J0360; J0456; J0696; J0780; J1650; J1815; J1885; J2270; J2919; J3475; J7050; J7512; J7620; J7999